=== PATIENT | female | born 1970 | race American Indian/Alaskan Native ===

== ENCOUNTER 2017-10-04 11:53 | Emergency (ER) | payer OTHER ==
[2017-10-04] MEDS ORDERED: MOTRIN PO ONE (16:18)
--- NOTE | 2017-10-04 16:43 | Emergency Department Report ---
ED Lower Extremity HPI - General Chief Complaint: Extremity Injury, Lower Stated Complaint: PAIN IN LEFT UPPER LEG Time Seen by Provider: 10/04/17 16:15 Source: patient Mode of arrival: Ambulatory Limitations: No Limitations - History of Present Illness Initial Comments: This is a 47-year-old female nontoxic, well nourished in appearance, no acute signs of distress presents to the ED with c/o of left hip and left humerus pain status post fall. Patient stated that 4 days ago she was walking down the stairs and slipped and landed on her hip/humerus region. Patient denies any other injuries or trauma. Patient denies any head trauma. Describes pain as aching with level of 8/10. Patient denies any chest pain, shortness of breathe, fever, chills, headache, nausea, vomiting, numbness, tingling, stiff neck. Patient denies any allergies or PMH. MD Complaint: hip injury, leg injury -: days(s) (4) Injury: Hip: Left, Leg: Left Type of Injury: blunt Place: home Severity: mild Severity scale (0 -10): 8 Improves With: nothing Worsens With: nothing Context: fall, direct blow Associated Symptoms: able to partially bear weight, ambulatory. denies: snap/ pop sensation, swelling, numbness, tingling, unable to bear weight - Related Data Previous Rx's Medication Instructions Recorded Last Taken Type Ibuprofen [Motrin] 600 mg PO Q8H PRN #30 tablet 10/04/17 Unknown Rx Allergies Allergy/AdvReac Type Severity Reaction Status Date / Time No Known Allergies Allergy Verified 10/04/17 12:36 ED Review of Systems ROS: Stated complaint: PAIN IN LEFT UPPER LEG Other details as noted in HPI Constitutional: denies: chills, fever Eyes: denies: eye pain, eye discharge, vision change ENT: denies: ear pain, throat pain Respiratory: denies: cough, shortness of breath, wheezing Cardiovascular: denies: chest pain, palpitations Endocrine: no symptoms reported Gastrointestinal: denies: abdominal pain, nausea, diarrhea Genitourinary: denies: urgency, dysuria, discharge Musculoskeletal: arthralgia. denies: back pain, joint swelling Skin: denies: rash, lesions Neurological: denies: headache, weakness, paresthesias Psychiatric: denies: anxiety, depression Hematological/Lymphatic: denies: easy bleeding, easy bruising ED Past Medical Hx - Past Medical History Previous Medical History?: No - Surgical History Past Surgical History?: No - Social History Smoking Status: Never Smoker Substance Use Type: Alcohol - Medications Home Medications: Home Medications Medication Instructions Recorded Confirmed Last Taken Type Ibuprofen [Motrin] 600 mg PO Q8H PRN #30 tablet 10/04/17 Unknown Rx ED Physical Exam - General Limitations: No Limitations General appearance: alert, in no apparent distress - Head Head exam: Present: atraumatic, normocephalic, normal inspection - Eye Eye exam: Present: normal appearance, PERRL, EOMI. Absent: scleral icterus, conjunctival injection, nystagmus, periorbital swelling, periorbital tenderness Pupils: Present: normal accommodation - ENT ENT exam: Present: mucous membranes moist - Neck Neck exam: Present: normal inspection - Respiratory Respiratory exam: Present: normal lung sounds bilaterally. Absent: respiratory distress - Cardiovascular Cardiovascular Exam: Present: regular rate, normal rhythm. Absent: systolic murmur, diastolic murmur, rubs, gallop - GI/Abdominal GI/Abdominal exam: Present: soft, normal bowel sounds - Extremities Exam Extremities exam: Present: normal inspection, full ROM, tenderness, normal capillary refill. Absent: pedal edema, joint swelling, calf tenderness - Expanded Lower Extremity Exam Left Hip exam: Present: normal inspection, full ROM, tenderness, external rotation, internal rotation, pelvic stability. Absent: swelling, abrasion, laceration, ecchymosis, deformity, crepidus, dislocation, erythema, shortening Upper Leg exam: Present: normal inspection, full ROM, tenderness. Absent: swelling, abrasion, laceration, ecchymosis, deformity, crepidus, dislocation, erythema Knee exam: Present: normal inspection, full ROM, full knee extension. Absent: tenderness, swelling, abrasion, laceration, ecchymosis, deformity, crepidus, dislocation, erythema, effusion, pain w/ pronation/supination, posterior draw sign, pain/laxity with valgus, pain/laxity with varus Lower Leg exam: Present: normal inspection, full ROM Ankle exam: Present: normal inspection, full ROM Foot/Toe exam: Present: normal inspection, full ROM Neuro vascular tendon exam: Present: no vascular compromise. Absent: pulse deficit, abnormal cap refill, motor deficit, sensory deficit, tendon deficit, extremity cold to touch, pallor, abnormal 2-point discrimination, decreased fine /light touch, foot drop, peroneal nerve deficit, significant pain with passive ROM of distal joint Gait: Positive: observed and limited by pain 1 - pain 2 - pain - Back Exam Back exam: Present: normal inspection, full ROM. Absent: tenderness, CVA tenderness (R), CVA tenderness (L), muscle spasm, paraspinal tenderness, vertebral tenderness, rash noted - Neurological Exam Neurological exam: Present: alert, oriented X3, CN II-XII intact, normal gait, reflexes normal - Psychiatric Psychiatric exam: Present: normal affect, normal mood - Skin Skin exam: Present: warm, dry, intact, normal color. Absent: rash ED Course Vital Signs 10/04/17 10/04/17 12:33 16:54 Temperature 97.6 F 98.2 F Pulse Rate 67 58 L Respiratory 100 H 18 Rate Blood Pressure 138/82 Blood Pressure 120/74 [Left] O2 Sat by Pulse 100 Oximetry - Reevaluation(s) Reevaluation #1: 10/04/17 16:46 Patient is speaking in full sentences with no signs of distress noted. ED Lower Extremity MDM - Medical Decision Making This is a 47-year-old female that presents with hip and humerus pain status post fall. Patient is stable and was examined by me. Xray of hip/humerus obtained and dictated by radiologist within normal limits. Patient is notified of xray results with no questions noted. Patient received Motrin in the ED which patient stated symptoms is improving and subsiding. Patient is discharge with motrin. Patient was instructed to Follow-up with a orthopedic doctor in 3- 5 days or if symptoms worsen and continue return to emergency room as soon as possible. At time time of discharge, the patient does not seem toxic or ill in appearance. No acute signs of distress noted. Patient agrees to discharge treatment plan of care. No further questions noted by the patient. Critical care attestation.: If time is entered above; I have spent that time in minutes in the direct care of this critically ill patient, excluding procedure time. ED Disposition Clinical Impression: Pain in humerus Fall Qualifiers: Encounter type: initial encounter Qualified Code(s): W19.XXXA - Unspecified fall, initial encounter Hip pain Qualifiers: Laterality: left Qualified Code(s): M25.552 - Pain in left hip Disposition: - TO HOME OR SELFCARE Is pt being admited?: No Does the pt Need Aspirin: No Condition: Stable Instructions: Ibuprofen (By mouth), Fall Prevention for Older Adults (ED) Additional Instructions: Follow-up with a orthopedic doctor in 3-5 days or if symptoms worsen and continue return to emergency room as soon as possible. Prescriptions: Ibuprofen [Motrin] 600 mg PO Q8H PRN #30 tablet PRN Reason: Pain Referrals: PRIMARY CAREMD [Primary Care Provider] - 3-5 Days RUSS PALTT MD [Staff Physician] - 3-5 Days [facility] [Outside] - 3-5 Days [facility] [Outside] - 3-5 Days Forms: Work/School Release Form(ED)
[2017-10-04 16:55] VITALS: BP 120/74
--- NOTE | 2017-10-04 17:59 | XRay Report ---
FINAL REPORT EXAM: XR HUMERUS 2+V LT HISTORY: humerus pain s/p fall TECHNIQUE: AP and lateral radiographs of the left humerus. PRIORS: None. FINDINGS: No fracture. No dislocation. Normal mineralization. No soft tissue abnormality. IMPRESSION: No acute left humerus abnormality.
--- NOTE | 2017-10-04 18:02 | XRay Report ---
FINAL REPORT EXAM: XR HIP 2-3V LT HISTORY: hip pain s/p fall TECHNIQUE: AP pelvis radiograph. Frog-leg radiograph of the left hip. PRIORS: None. FINDINGS: No fracture. No dislocation. Normal mineralization. No soft tissue abnormality. IMPRESSION: No acute pelvis or left hip abnormality.
== END 2017-10-04 18:30 | disposition home or self-care (01) ==
LOC: ED 11:53
DX: M25.552 Pain in left hip (principal); M79.602 Pain in left arm; W10.9XXA Fall (on) (from) unspecified stairs and steps, initial encounter; Y93.01 Activity, walking, marching and hiking; Y99.8 Other external cause status; Y92.009 Unspecified place in unspecified non-institutional (private) residence as the place of occurrence of the external cause
CPT/HCPCS: 99283

== ENCOUNTER 2020-06-27 06:56 | Emergency (ER) | payer SELFPAY ==
[2020-06-27 07:48] VITALS: BP 131/91
--- NOTE | 2020-06-27 10:35 | Emergency Department Report ---
ED General Adult HPI - General Chief complaint: Medical Clearance Stated complaint: HEAD/NECK PAIN Time Seen by Provider: 06/27/20 10:31 Source: patient Mode of arrival: Ambulatory Limitations: No Limitations - History of Present Illness Initial comments: Patient is a 50-year-old female presents emergency room with complaints of a headache that began 2 weeks ago. She has associated sinus pressure, bilateral ear pressure, occasional ringing in the ears. She denies any nausea, vomiting, diarrhea, vision changes, shortness of breath, cough, chest pain, loss of consciousness, fever. She has a past medical history of hypertension and states that she has not taken blood pressure medication in multiple months. She states that at first she thought it could have been related to her blood pressure. She denies any allergies to medications. She is a non-smoker, occasional drinker. She states her last menstrual cycle was June 01. - Related Data Previous Rx's Medication Instructions Recorded Last Taken Type Ibuprofen [Motrin] 600 mg PO Q8H PRN #30 tablet 10/04/17 Unknown Rx Amoxicillin/Potassium Clav 1 each PO BID 10 Days #20 tablet 06/27/20 Unknown Rx [Augmentin 875-125 Tablet] Butalb/Acetaminophen/Caffeine 1 cap PO Q8HR PRN #10 cap 06/27/20 Unknown Rx [Fioricet 50-300-40 mg CAP] Fluticasone [Flonase] 1 spray NS QDAY #1 bottle 06/27/20 Unknown Rx Allergies Allergy/AdvReac Type Severity Reaction Status Date / Time No Known Allergies Allergy Verified 10/04/17 12:36 ED Review of Systems ROS: Stated complaint: HEAD/NECK PAIN Other details as noted in HPI Comment: All other systems reviewed and negative ED Past Medical Hx - Past Medical History Previous Medical History?: Yes Hx Hypertension: Yes - Surgical History Past Surgical History?: No - Social History Smoking Status: Never Smoker Substance Use Type: Alcohol - Medications Home Medications: Home Medications Medication Instructions Recorded Confirmed Last Taken Type Ibuprofen [Motrin] 600 mg PO Q8H PRN #30 tablet 10/04/17 Unknown Rx Amoxicillin/Potassium Clav 1 each PO BID 10 Days #20 tablet 06/27/20 Unknown Rx [Augmentin 875-125 Tablet] Butalb/Acetaminophen/Caffeine 1 cap PO Q8HR PRN #10 cap 06/27/20 Unknown Rx [Fioricet 50-300-40 mg CAP] Fluticasone [Flonase] 1 spray NS QDAY #1 bottle 06/27/20 Unknown Rx ED Physical Exam - General Limitations: No Limitations General appearance: alert, in no apparent distress - Head Head exam: Present: atraumatic, normocephalic - Eye Eye exam: Present: normal appearance, PERRL, EOMI Pupils: Present: normal accommodation - ENT ENT exam: Present: normal orophraynx, mucous membranes moist, TM's normal bilaterally, normal external ear exam, other (bilateral frontal sinus ttp, no maxillary sinus ttp) - Neck Neck exam: Present: normal inspection, full ROM. Absent: tenderness, meningismus - Respiratory Respiratory exam: Present: normal lung sounds bilaterally. Absent: respiratory distress, wheezes, rales, rhonchi, stridor, chest wall tenderness, accessory muscle use, decreased breath sounds, prolonged expiratory - Cardiovascular Cardiovascular Exam: Present: regular rate, normal rhythm, normal heart sounds. Absent: systolic murmur, diastolic murmur, rubs, gallop - Neurological Exam Neurological exam: Present: alert, oriented X3, CN II-XII intact, normal gait. Absent: motor sensory deficit - Psychiatric Psychiatric exam: Present: normal affect, normal mood - Skin Skin exam: Present: warm, dry, intact ED Course Vital Signs 06/27/20 07:46 Temperature 97.8 F Pulse Rate 76 Respiratory 18 Rate Blood Pressure 131/91 [Right] O2 Sat by Pulse 97 Oximetry ED Medical Decision Making - Medical Decision Making Patient is a 50-year-old female presents emergency room with complaints of a headache that began 2 weeks ago. She has associated sinus pressure, bilateral ear pressure, occasional ringing in the ears. She denies any nausea, vomiting, diarrhea, vision changes, shortness of breath, cough, chest pain, loss of consciousness, fever. She has a past medical history of hypertension and states that she has not taken blood pressure medication in multiple months. She states that at first she thought it could have been related to her blood pressure. She denies any allergies to medications. She is a non-smoker, occasional drinker. She states her last menstrual cycle was June 01. vitals are normal. BP is stable, no significant HTN. Patient has no focal neuro deficits on exam, normal oropharynx, normal TMs and canals bilaterally, bilateral frontal sinus ttp, no maxillary sinus ttp. Symptoms and examination appear most consistent with acute sinusitis. Patient has had symptoms for over 10 days therefore warrants antibiotic treatment. Discussed all findings with patient. Discussed patient's blood pressure with patient and lifestyle modifications but would not place patient on blood pressure medication at this time due to concerns for causing hypotension. Patient given prescription for Fioricet, Augmentin, Flonase. Advised patient Please take medication as prescribed. Increase your water intake. Follow-up with a primary care doctor. Follow-up with a ENT doctor. Eat a low-sodium/low salt diet. Incorporate 30 to 60 minutes of daily exercise. Please keep a blood pressure log, and take this to the primary care doctor. Return to emergency room for any new or worsening symptoms. Critical care attestation.: If time is entered above; I have spent that time in minutes in the direct care of this critically ill patient, excluding procedure time. ED Disposition Clinical Impression: Acute sinusitis Qualifiers: Sinusitis location: frontal Recurrence: non-recurrent Qualified Code(s): J01.10 - Acute frontal sinusitis, unspecified Headache Qualifiers: Headache type: other headache syndrome Qualified Code(s): G44.89 - Other headache syndrome Tinnitus Qualifiers: Laterality: bilateral Qualified Code(s): H93.13 - Tinnitus, bilateral Disposition: DC-01 TO HOME OR SELFCARE Is pt being admited?: No Does the pt Need Aspirin: No Condition: Stable Instructions: Sinusitis (ED), Low Sodium Diet (ED) Additional Instructions: Please take medication as prescribed. Increase your water intake. Follow-up with a primary care doctor. Follow-up with a ENT doctor. Eat a low-sodium/low salt diet. Incorporate 30 to 60 minutes of daily exercise. Please keep a blood pressure log, and take this to the primary care doctor. Return to emergency room for any new or worsening symptoms. Prescriptions: Amoxicillin/Potassium Clav [Augmentin 875-125 Tablet] 1 each PO BID 10 Days #20 tablet Butalb/Acetaminophen/Caffeine [Fioricet 50-300-40 mg CAP] 1 cap PO Q8HR PRN #10 cap PRN Reason: headache Fluticasone [Flonase] 1 spray NS QDAY #1 bottle Referrals: AMBROCIO MENDEZ MD [Staff Physician] - 2-3 Days [facility] [Provider Group] - 2-3 Days [facility], [LAB/CONTRACT] - 2-3 Days VEE DIXON MD [Staff Physician] - 2-3 Days Time of Disposition: 10:33 Print Language: [place]
== END 2020-06-27 11:06 | disposition home or self-care (01) ==
LOC: ED 06:56
DX: H93.13 Tinnitus, bilateral (principal); I10 Essential (primary) hypertension; Z79.1 Long term (current) use of non-steroidal anti-inflammatories (NSAID); Z79.899 Other long term (current) drug therapy
CPT/HCPCS: 99282